=== PATIENT | male | born 1990 | race Two or more races ===

== ENCOUNTER 2023-03-26 16:04 | Emergency (ER) | payer OTHER, SELFPAY ==
--- NOTE | ~2023-03-26 | XR_ITS ---
EXAMINATION: XR LUMBOSACRAL SPINE CLINICAL INFORMATION: Pain COMPARISON: None available. TECHNIQUE: Three views of the lumbosacral spine. FINDINGS: The vertebral bodies and posterior elements are normal. The disc spaces are preserved and the vertebral alignment is normal. The paraspinal soft tissues are normal. XR/XR lumbar spine 2-3V IMPRESSION: Unremarkable examination.
--- NOTE | ~2023-03-26 | XR_ITS ---
Examination: XR knee RT 3V, XR knee LT 3V Indication: pain Comparison: No pertinent prior studies are currently available for comparison. Technique: 4 views of each knee Findings: Bilaterally there is no significant joint effusion. No acute fracture or dislocation. 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 No radiopaque foreign body or soft tissue gas. XR/XR knee LT 3V Impression: No acute fracture or dislocation.
--- NOTE | ~2023-03-26 | XR_ITS ---
Examination: XR knee RT 3V, XR knee LT 3V Indication: pain Comparison: No pertinent prior studies are currently available for comparison. Technique: 4 views of each knee Findings: Bilaterally there is no significant joint effusion. No acute fracture or dislocation. 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 No radiopaque foreign body or soft tissue gas. XR/XR knee RT 3V Impression: No acute fracture or dislocation.
[2023-03-26 16:11] VITALS: BP 149/92; PULSE 82; RESP 16; TEMP 36.9; O2SAT 99; BMI 25.1
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
== END 2023-03-26 18:33 | disposition home or self-care (01) ==
PROVIDERS: Emergency Provider Student in an Organized Health Care Education/Training Program
DX: S09.93XA Unspecified injury of face, initial encounter (principal); S89.91XA Unspecified injury of right lower leg, initial encounter; S89.92XA Unspecified injury of left lower leg, initial encounter; M54.50 Low back pain, unspecified; R51.9 Headache, unspecified; V43.52XA Car driver injured in collision with other type car in traffic accident, initial encounter; Y93.9 Activity, unspecified; Y92.410 Unspecified street and highway as the place of occurrence of the external cause; Y99.9 Unspecified external cause status; Z79.899 Other long term (current) drug therapy
CPT/HCPCS: 72100; 73562; 99282; 99283